=== PATIENT | male | born 1985 | race Caucasian/White ===

== ENCOUNTER → 2017-12-23 15:13 | Outpatient (CLI) | payer OTHER, SELFPAY ==
--- NOTE | 2017-12-23 15:28 | RAD_ITS ---
STUDY: X-RAY - LUMBAR SPINE REASON FOR EXAM: Male, 32 years old. Pain. TECHNIQUE: 5 view(s) of the lumbar spine were obtained. COMPARISON: None FINDINGS: Normal lumbar lordosis. There is no substantial scoliosis. There is a normal alignment of the vertebrae. Normal vertebral bodies and endplates. Normal disc space heights. The soft tissue structures are unremarkable. RAD/L/S Spine Min 4 Views IMPRESSION: Within normal limits x-ray examination of the lumbar spine. Electronically Signed: Lorie Montoya MD at 16:05 EST Tel , Service support ,
== END ==
PROVIDERS: Family Provider Family Medicine; PCP Family Medicine; Referring Provider Family Medicine; Visit Provider Family Medicine
DX: M54.16 Radiculopathy, lumbar region (principal)
CPT/HCPCS: 72110

== ENCOUNTER 2023-05-21 14:36 | Emergency (ER) | payer BC, SELFPAY ==
[2023-05-21 14:37] VITALS: BP 136/87; PULSE 73; RESP 14; TEMP 36.2; O2SAT 100
--- NOTE | 2023-05-21 14:58 | EDS_ITS ---
HPI History of Present Illness Chief Complaint: Lower Extremity Injury Informant: patient Narrative Narrative: Patient presents secondary to right foot and ankle injury. Patient was in [facility] [place] and fell [place] some steps injuring his right ankle. He denies striking his head or any other injury. He has not yet taken anything for pain. PFSH PFSH Medical History no medical history no medical history Home Medications hydrocodone-acetaminophen 5-325mg 5mg-325mg 1 tab PO Q6H PRN PRN Pain 3 days #10 TABLETS 05/21/23 [Rx Last Taken Unknown] naproxen 500 mg tablet (Naprosyn) 500 mg PO BID PRN pain #20 tabs 05/21/23 [Rx Last Taken Unknown] Allergy/AdvReac Type Severity Reaction Status Date / Time No Known Allergies Allergy Verified 05/21/23 14:37 Social History Smoking Status: Unknown if ever smoked ROS ROS ED Constitutional Constitutional ED: Denies chills or fever(s) Eyes Eyes: Denies discharge from eye(s) ENT ENT ED: Denies discharge from eye(s), rhinorrhea or sore throat Cardiovascular Cardiovascular: Denies chest pain or palpitations Respiratory/Chest Respiratory/Chest: Denies cough or dyspnea Gastrointestinal Gastrointestinal: Denies abdominal pain, nausea or vomiting Musculoskeletal Musculoskeletal: Reports extremity pain; Denies back pain Integumentary Denies Abrasions or rash Neurologic Neurologic: Denies headache(s) or paresthesias Allergic/Immunologic Allergic/Immunologic ED: Denies lip swelling or urticaria EXAM Physical Exam Const Vital Signs: 05/21/23 14:37 05/21/23 14:37 Temperature 97.1 F L Temperature Source Temporal Pulse Rate 73 73 Respiratory Rate 14 14 Blood Pressure 136/87 H 136/87 H Blood Pressure Mean 103 103 Pulse Ox 100 100 Oxygen Delivery Method Room Air Room Air Positive well nourished and well developed General Appearance ED: well developed HEENT Reports moist mucous membranes Eyes EOMs intact bilaterally Chest Wall inspection of chest normal and palpation of chest normal Resp normal respiratory effort and clear to auscultation bilaterally Cardio regular rate and regular rhythm GI non-tender Palpation: soft Extremity Extremity Narrative: Edema and diffuse tenderness of patient noted around the right ankle. Mild tenderness over the foot itself. Good distal pulses with sensation and cap refill intact. No tenderness at the knee or proximal fibula. No pain at the hip. Neuro oriented x3 and no sensory deficits noted Psych mental status grossly normal Skin no rashes or lesions noted MDM MDM MDM Narrative Medical decision making narrative: Patient given 2 tabs of p.o. Murchison. X-rays of the right foot and ankle obtained to evaluate for potential fracture. Differential includes sprain, strain, contusion. Radiography Diagnostic Testing: Clinical Impression(s) from Imaging Studies Ankle X-Ray 05/21/23 15:05 IMPRESSION: Soft tissue swelling overlying the lateral malleolus. Small ankle joint effusion. Electronically Signed: Akash Madera MD at 15:18 EDT , Foot X-Ray 05/21/23 15:05 IMPRESSION: Soft tissue swelling. No fracture is seen. Electronically Signed: Akash Madera MD at 15:19 EDT , Treatment and Re-Evaluation :: X-rays of the right foot and ankle per my interpretation for soft tissue swelling with no obvious fracture. Radiology interpretation reviewed and agrees. Test results are discussed with the patient. He will placed in an air stirrup splint. He has crutches at home that his is bringing him. I will write him a prescription for naproxen along with a few M[place]ison for breakthrough pain. Patient referred to orthopedics if not improving. Patient comfortable with the plan. Discharge Plan Triage Chief Complaint: Lower Extremity Injury ED Provider: Lacy Brannon Dx/Rx/DC Orders Clinical Impression: Right ankle sprain Instructions: ED Ankle Sprain (Adult) Prescriptions: New naproxen [Naprosyn] 500 mg tablet 500 mg PO BID PRN (Reason: pain) Qty: 20 0RF hydrocodone-acetaminophen 5-325 mg tablet 1 tab PO Q6H PRN PRN (Reason: Pain) 3 Days Qty: 10 0RF Primary Care Provider: Maxi Marie Referrals: Maxi Marie MD [Primary Care Provider] - Artie Kilgore DO [Med Staff - Active Staff] - 1 Week if not improving Disposition Disposition: Home, Self Care
[2023-05-21] MEDS: HYDROcodone Bitartrate/Apap 5/325 Tablet PO (15:03)
--- NOTE | 2023-05-21 15:05 | RAD_ITS ---
STUDY: X-RAY - RIGHT ANKLE REASON FOR EXAM: Male, 37 years old. Pain following injury. TECHNIQUE: 3 view(s) of the ankle. COMPARISON: None. FINDINGS: Normal visualized distal tibia and fibula. Normal medial and lateral malleoli. Normal tibiotalar articulation and ankle mortise. Normal visualized talus and calcaneus. The visualized subtalar, talonavicular, calcaneocuboid and tarsal articulations are normal. Soft tissue swelling overlying the lateral malleolus. Small ankle joint effusion. RAD/Ankle min 3 Views IMPRESSION: Soft tissue swelling overlying the lateral malleolus. Small ankle joint effusion. Electronically Signed: Akash Madera MD at 15:18 EDT ,
--- NOTE | 2023-05-21 15:05 | RAD_ITS ---
STUDY: X-RAY - RIGHT FOOT CLINICAL: Male, 37 years old. Injury TECHNIQUE: 3 view(s) of the foot. COMPARISON: None. FINDINGS: Normal talus, calcaneus, and tarsal bones. Normal visualized subtalar, talonavicular, calcaneocuboid, tarsal and tarsometatarsal articulations. Normal metatarsi. Normal metatarsophalangeal joint of the great toe. Normal tibial and fibular sesamoid bones. Normal interphalangeal joint of the great toe. Normal phalanges of the great toe. Normal second through fifth metatarsophalangeal joints. Normal interphalangeal joints and phalanges of the lesser toes. Soft tissue swelling RAD/Foot min 3 Views IMPRESSION: Soft tissue swelling. No fracture is seen. Electronically Signed: Akash Madera MD at 15:19 EDT ,
[2023-05-21 16:11] VITALS: BP 129/81; PULSE 79; RESP 14; TEMP 36.6; O2SAT 100
== END 2023-05-21 16:12 | disposition home or self-care (01) ==
PROVIDERS: Emergency Provider Emergency Medicine; PCP Family Medicine; Visit Provider Emergency Medicine
DX: S93.401A Sprain of unspecified ligament of right ankle, initial encounter (principal); W10.9XXA Fall (on) (from) unspecified stairs and steps, initial encounter; Y92.89 Other specified places as the place of occurrence of the external cause
CPT/HCPCS: 73610; 73630; 99283